=== PATIENT | male | born 1995 | race Caucasian/White ===

== ENCOUNTER → 2021-11-13 | Outpatient (CLI) | payer OTHER ==
[~2021-11-13] MED LIST: ALBU90OI6 INH; CLIN300 PO; CRUTCH4 USE; HYDACE25S PR; HYDACE5 PO; IBUP600 PO; IBUP800 PO; LEVA.63IS IH; META800 PO; NAPR375 PO; PROM25 PO; Percocet 5-3251 EACH PO; VALA500 PO; Zofran Odt4 MG SL
[2021-11-15 20:10] LABS: CHLAMYDIA BY NAA Negative (Negative); GONOCOCCUS BY NAA Negative (Negative); TRICH VAG BY NAA Negative (Negative)
== END | disposition home or self-care (01) ==
LOC: LAB SHORT 12:46
PROVIDERS: Physician Assistant
DX: Z20.2 Contact with and (suspected) exposure to infections with a predominantly sexual mode of transmission (principal)
CPT/HCPCS: 87491; 87591; 87661